=== PATIENT | male | born 1935 | race Caucasian/White ===

== ENCOUNTER 2017-01-31 20:23 | Observation (INO) | payer OTHER, MEDICARE ==
[~2017-01-31] VITALS: Ht 172.7 cm; Wt 89.9 kg
[2017-01-31 20:59] LABS: HEMATOCRIT 36.2 % (38.0-50.0); MCH 30.6 PG (29.0-34.0); MCHC 33.7 G/DL (30.0-36.0); MCV 90.7 FL (86-99); MEAN PLAT.VOLUME 10.4 uM^3 (9.0-12.4); PLATELET COUNT 231 K/uL (156-360); RBC DIS.WIDTH-CV 13.2 % (11.8-14.6); RBC DIS.WIDTH-SD 43.8 % (39-53); RED BLOOD COUNT 3.99 M/uL (4.00-5.50); WHITE BLOOD COUNT 7.3 K/uL (4.1-10.2)
[2017-01-31 21:12] LABS: CHLORIDE 101 mEq/L (99-109); POTASSIUM 4.6 mEq/L (3.7-5.4); SODIUM 133 mEq/L (136-147)
[2017-01-31 21:14] LABS: GLUCOSE 210 mg/dL (70-99)
[2017-01-31 21:16] LABS: ANION GAP 12 MEQ/L (2-14)
[2017-01-31 21:19] LABS: TROP-I INTERPRETATION NEGATIVE; TROPONIN-I < 0.01 ng/mL (0.0-0.30); UREA NITROGEN (BUN) 19 mg/dL (9-23)
[2017-01-31 21:20] LABS: GFR ESTIMATE (CALCULATED) 56 mL/min/
[2017-01-31] MEDS ORDERED: ALDACTAZIDE 251 EACH PO (22:44)
[2017-01-31] MEDS ORDERED: VALSARTAN320 MG PO (22:44)
[2017-01-31] MEDS ORDERED: ALLOPURINOL300 MG PO (22:44)
[2017-01-31] MEDS ORDERED: MYRBETRIQ25 MG PO (22:45)
[2017-01-31] MEDS ORDERED: JANUMET XR 50-1 EACH PO (22:45)
[2017-01-31] MEDS ORDERED: CRESTOR5 MG PO (22:45)
[2017-01-31] MEDS ORDERED: LO-DOSE ASPIRIN81 M2 PO (22:46)
[2017-01-31] MEDS ORDERED: ALPHA LIPOIC A600 MG PO (22:46)
[2017-01-31] MEDS ORDERED: METAMUCIL POWD798 GM PO (22:47)
[2017-01-31] MEDS ORDERED: COLCRYS0.6 MG PO (22:47)
[2017-02-01 01:48] LABS: D-DIMER ELISA 0.25 mg/L FEU (< 0.57)
[2017-02-01 01:58] LABS: TROP-I INTERPRETATION NEGATIVE; TROPONIN-I < 0.01 ng/mL (0.0-0.30)
[2017-02-01 02:15] VITALS: BP 128/60
[2017-02-01 07:15] LABS: TROP-I INTERPRETATION NEGATIVE; TROPONIN-I < 0.01 ng/mL (0.0-0.30)
[2017-02-01 09:06] LABS: ANION GAP 12 MEQ/L (2-14); CHLORIDE 99 MEQ/L (99-109); GFR ESTIMATE (CALCULATED) 56 mL/min/; GLUCOSE 149 mg/dL (70-99); POTASSIUM 4.9 MEQ/L (3.7-5.4); SAMPLE HEMOLYSIS CHECK 0; SAMPLE ICTERIC CHECK 0; SAMPLE LIPEMIA CHECK 0; SODIUM 132 MEQ/L (136-147); UREA NITROGEN (BUN) 20 mg/dL (9-23)
[2017-02-01 09:21] LABS: EOSINOPHIL (%) 1.3 % (0-5); EOSINOPHIL COUNT 0.1 K/uL (0-0.3); HEMATOCRIT 34.2 % (38.0-50.0); IMMATURE GRANULOCYTE (%) 0.3 % (0.0-0.7); INSTRUMENT ABS NEUTROPHIL CT 5.7 K/uL; LYMPHOCYTE COUNT 0.8 K/uL (1.0-2.8); MCH 31.6 PG (29.0-34.0); MCHC 34.5 G/DL (30.0-36.0); MCV 91.7 FL (86-99); MEAN PLAT.VOLUME 11.1 uM^3 (9.0-12.4); MONOCYTE (%) 9.6 % (3-12); MONOCYTE COUNT 0.7 K/uL (0-0.8); NEUTROPHIL (%) 77.2 % (45-76); NEUTROPHIL COUNT 5.7 K/uL (1.8-6.4); PLATELET COUNT 237 K/uL (156-360); RBC DIS.WIDTH-CV 13.4 % (11.8-14.6); RBC DIS.WIDTH-SD 44.7 % (39-53); RED BLOOD COUNT 3.73 M/uL (4.00-5.50); WHITE BLOOD COUNT 7.4 K/uL (4.1-10.2)
[2017-02-01 10:41] LABS: Estimated Average Glucose 134 mg/dL (70-123); HEMOGLOBIN A1c (GLYCOHEMOGLOB) 6.3 % HGB (Below 5.7)
[2017-02-01] MEDS ORDERED: JANUVIA25 M1 PO (10:53)
[2017-02-01 11:42] VITALS: BP 119/56
== END 2017-02-01 12:14 | disposition home or self-care (01) ==
LOC: EDBD 20:23 → EME 20:23 → EDOF 02-01 01:00 → 5WEST 02-01 02:05
PROVIDERS: Hospitalist; Physician Assistant Medical
DX: R55 Syncope and collapse (principal); E87.1 Hypo-osmolality and hyponatremia; I12.9 Hypertensive chronic kidney disease with stage 1 through stage 4 chronic kidney disease, or unspecified chronic kidney disease; E11.22 Type 2 diabetes mellitus with diabetic chronic kidney disease; N18.3 Chronic kidney disease, stage 3 (moderate); M19.90 Unspecified osteoarthritis, unspecified site; Z85.46 Personal history of malignant neoplasm of prostate; Z87.891 Personal history of nicotine dependence; D64.9 Anemia, unspecified
CPT/HCPCS: 70450; 71020; 80048; 82948; 83036; 84484; 85025; 85027; 85379; 93005; 99281; 99284; G0378; J1644; J1815; J7030